=== PATIENT | male | born 1955 | race African-American/Black ===

== ENCOUNTER 2024-07-15 08:48 | Emergency (ER) | payer OTHER ==
[~2024-07-15] VITALS: Ht 180.3 cm; Wt 102.0 kg
[2024-07-15 08:50] VITALS: O2SAT 99
[2024-07-15] MEDS ORDERED: BO1 TP (10:32)
[2024-07-15] MEDS: BACITRACIN ZINC OINT UDPKT TOP ONE (10:41)
[2024-07-15] MEDS: BACITRACIN/POLYMYXIN B SULFATE OINT 15GM TOP ONE (10:41)
[2024-07-15] MEDS: BACITRACIN ZINC OINT UDPKT TOP SCH (10:41)
[2024-07-15 10:42] VITALS: BP 140/76; PULSE 78; RESP 18; TEMP 36.55848; O2SAT 99
[2024-07-15] MEDS ORDERED: IBUP-2029 MT (10:43)
== END 2024-07-15 10:42 | disposition home or self-care (01) ==
LOC: ER 08:48
DX: S50.01XA Contusion of right elbow, initial encounter (principal); S80.01XA Contusion of right knee, initial encounter; W18.30XA Fall on same level, unspecified, initial encounter; Y93.89 Activity, other specified; Y92.89 Other specified places as the place of occurrence of the external cause; Y99.8 Other external cause status
CPT/HCPCS: 73080; 73700; 99284